=== PATIENT | male | born 1970 | race Two or more races ===

== ENCOUNTER 2018-01-31 16:46 | Emergency (ER) | payer SELFPAY ==
[~2018-01-31] VITALS: Ht 177.8 cm; Wt 75.0 kg
[2018-01-31 17:08] VITALS: BP 142/91
== END 2018-01-31 18:57 | disposition home or self-care (01) ==
LOC: ER 16:46
DX: S00.83XA Contusion of other part of head, initial encounter (principal); R20.2 Paresthesia of skin; Y08.89XA Assault by other specified means, initial encounter; Y93.89 Activity, other specified; Y92.89 Other specified places as the place of occurrence of the external cause; Y99.8 Other external cause status
CPT/HCPCS: 99283

== ENCOUNTER 2021-07-29 12:41 | Emergency (ER) | payer SELFPAY ==
[~2021-07-29] VITALS: Ht 177.8 cm; Wt 80.0 kg
[2021-07-29 13:00] VITALS: BP 131/85
== END 2021-07-29 16:20 | disposition home or self-care (01) ==
LOC: ER 12:58
DX: F10.129 Alcohol abuse with intoxication, unspecified (principal); S01.112A Laceration without foreign body of left eyelid and periocular area, initial encounter; F91.8 Other conduct disorders; R03.0 Elevated blood-pressure reading, without diagnosis of hypertension; Y90.9 Presence of alcohol in blood, level not specified; X58.XXXA Exposure to other specified factors, initial encounter; Y93.89 Activity, other specified; Y92.480 Sidewalk as the place of occurrence of the external cause
CPT/HCPCS: 12011; 99283

== ENCOUNTER 2024-08-14 17:58 | Emergency (ER) | payer SELFPAY ==
[~2024-08-14] VITALS: Ht 172.7 cm; Wt 87.0 kg
[2024-08-14 18:01] VITALS: BP 132/86; PULSE 98; RESP 20; O2SAT 95
== END 2024-08-14 20:05 | disposition home or self-care (01) ==
LOC: ER 17:58
DX: F10.129 Alcohol abuse with intoxication, unspecified (principal); Y90.9 Presence of alcohol in blood, level not specified
CPT/HCPCS: 99283